=== PATIENT | female | born 1970 | race Asian ===

== ENCOUNTER 2022-11-28 15:00 | Emergency (ER) | payer OTHER, SELFPAY ==
[2022-11-28] VITALS (10 sets, daily range): BP systolic 116–140; BP diastolic 57–82; PULSE 81–104; RESP 16–18; TEMP 36.5–37.3; O2SAT 98–100; BMI 31.0
--- NOTE | 2022-11-28 15:20 | EDS_ITS ---
HPI History of Present Illness Chief Complaint: Abn Labs Narrative Narrative: 52-year-old female presenting with anemia. Patient reports a longstanding history of anemia but she does not know exactly what her hemoglobin levels were. She is recently moved from [facility]. She states last blood work was a year ago. She reports a long-term issue with menstrual cycles and vaginal bleeding. Prior to moving to the [facility] she has had menstrual cycles lasting 7 to 10 days month. Since moving here she has menstrual cycles every 1 to 2 months and can be is mild to spotting or heavy flow with clots. In October her menstrual period lasted 30 days. Patient states over this month it varied from spotting to heavy bleeding with golf ball size clots. She is currently only spotting. She was seen for the first time in her [employer] office and saw the nurse practitioner who did a biopsy. They checked a CBC noting that she had a low hemoglobin at 5.3. Patient does not report any black or bloody stools. She denies black or bloody emesis. She does report that if she gets up and moves too quickly she will feel short of breath and sometimes lightheaded. PFSH PFSH Allergy/AdvReac Type Severity Reaction Status Date / Time No Known Allergies Allergy Verified 11/28/22 15:02 Social History Smoking Status: Never smoker ROS ROS ED Constitutional Constitutional ED: Denies chills or fever(s) Eyes Eyes: Denies change in vision or diplopia ENT ENT ED: Denies rhinorrhea or sore throat Cardiovascular Cardiovascular: Denies chest pain or palpitations Respiratory/Chest Respiratory/Chest: Reports dyspnea on exertion; Denies cough Gastrointestinal Gastrointestinal: Denies abdominal pain, melena, nausea or vomiting Genitourinary Genitourinary ED: Reports other Details: Heavy menstrual side ; Denies dysuria or hematuria Musculoskeletal Musculoskeletal: Denies arthralgias or back pain Integumentary Denies abscess Neurologic Neurologic: Denies headache(s) EXAM Physical Exam Const Vital Signs: 11/28/22 15:01 11/28/22 17:29 11/28/22 17:01 Temperature 98 F 97.7 F L 97.7 F L Temperature Source Temporal Temporal Temporal Pulse Rate 104 H 98 98 Respiratory Rate 16 18 18 Blood Pressure 140/81 H 133/82 H 133/82 H Blood Pressure Mean 100 99 99 Blood Pressure Source Monitor Blood Pressure Position Semi-Fowlers Blood Pressure Location Left Arm Pulse Ox 100 100 100 Oxygen Delivery Method Room Air Room Air Room Air 11/28/22 17:43 11/28/22 17:44 Temperature 98.4 F 98.6 F Temperature Source Temporal Temporal Pulse Rate 96 93 Respiratory Rate 16 16 Blood Pressure 116/57 L 134/59 H Blood Pressure Mean 76 84 Blood Pressure Source Monitor Monitor Blood Pressure Position Semi-Fowlers Semi-Fowlers Blood Pressure Location Left Arm Left Arm Pulse Ox 98 98 Oxygen Delivery Method Room Air Room Air Positive well nourished General Appearance ED: NAD HEENT Reports moist mucous membranes Eyes PERRL and EOMs intact bilaterally General Eye ED: Negative for pale conjunctiva Chest Wall inspection of chest normal and palpation of chest normal Resp normal respiratory effort Auscultation: Negative for rales, rhonchi or wheezes Cardio regular rate and regular rhythm GI normal to inspection, nondistended, normoactive bowel sounds Extremity normal to inspection General Extremety ED: Negative for edema or tenderness General Extremity: Negative for edema Neuro oriented x3 and CN's II-XII intact bilaterally Sensorium / Orientation: alert Motor Exam: strength 5/5 throughout Psych mental status grossly normal MDM MDM MDM Narrative Medical decision making narrative: Patient with dysfunctional uterine bleeding and hemoglobin of 5.3. She is typed, screened, crossmatched for 2 units of blood. She is already had a biopsy done by obstetrics. I spoke with Dr. Sosa who is on-call for the group and she recommends just close outpatient follow-up after she receives her transfusion. They will discuss her options as an outpatient. CBC to assess white blood cell count, hemoglobin, platelets, differential. To assess liver function, renal function, glucose, anion gap, electrolytes. CBC shows a low white blood 8. Hemoglobin 5.0. Platelets 317. CMP unremarkable. Patient receiving blood transfusion without any difficulties. She feels well. She states she is actually feeling better. Once her blood is transfused I will have her discharged home to follow-up with Dr. Sosa. Return precautions were discussed. Impression: 1. Acute blood loss anemia 2. Dysfunctional uterine bleeding Lab Data Attestation: I reviewed the patient's lab results. Labs: Laboratory Results - last 24 hr 11/28/22 11/28/22 11/28/22 15:21 15:21 15:21 WBC 3.8 L RBC 3.80 L Hgb 5.0 L* Hct 21.2 L MCV 55.8 L MCH 13.2 L MCHC 23.6 L RDW Std Deviation 43.4 RDW Coeff of Catina 22.7 H Plt Count 317 Immature Gran % (Auto) 0.500 Neut % (Auto) 54.0 Lymph % (Auto) 32.7 Quay % (Auto) 11.5 H Eos % (Auto) 0.8 Baso % (Auto) 0.5 Absolute Neuts (auto) 2.1 Absolute Lymphs (auto) 1.25 Nucleated RBC % 0 Differential Comment SCANNED Diff Path Review May foll Polychromasia 1+ Hypochromasia 3+ Anisocytosis 2+ Microcytosis 3+ Ovalocytes RARE Sodium 140 Potassium 3.8 Chloride 108 H Carbon Dioxide 24.0 Anion Gap 8 BUN 13 Creatinine 0.88 Estim Creat Clear Calc 57.71 Est GFR (MDRD) Af Amer 88 Est GFR (MDRD) Non-Af 73 BUN/Creatinine Ratio 14.8 Glucose 172 H Calcium 8.8 Total Bilirubin 0.40 AST 11 L ALT 19 Alkaline Phosphatase 61 Total Protein 7.1 Albumin 3.6 Globulin 3.5 Albumin/Globulin Ratio 1.0 Blood Type B POSITIVE Antibody Screen NEGATIVE Crossmatch See Detail Discharge Plan Triage Chief Complaint: Abn Labs ED Provider: Yamil Paiz Dx/Rx/DC Orders Instructions: ED Dysfunctional Uterine Bleeding, ED Anemia, Unspecified (Child) Primary Care Provider: Sarahi Box NP Referrals: Sarahi Box FAMILY MEDICINE PHYSICIAN, FAMILY MEDICINE PHYSICIAN-C [Primary Care Provider] - Disposition Disposition: Home, Self Care
[2022-11-28 15:44] LABS: Absolute Lymphocyte Count 1.25 X10^3/uL (0.83-4.51); Absolute Neutrophil Count 2.1 X10^3/uL (2.0-7.7); Basophil# 0.02 X10^3/uL; Basophil% 0.5 % (0-1); Eosinophil# 0.03 X10^3/uL; Eosinophils% 0.8 % (0-5); Hematocrit 21.2 % (37-47); Lymphocyte # 1.25 X10^3/ul (0.83-4.51); Lymphocyte % 32.7 % (19-41); Mean Corp Hgb Conc 23.6 g/dL (32-36); Mean Corpuscular Hgb 13.2 pg (27.0-32.0); Mean Corpuscular Volume 55.8 fL (81-99); Monocyte# 0.44 X10^3/uL; Monocyte% 11.5 % (0-10); NRBC Flagged by Analyzer 0 % (0-5); Neutrophil # 2.06 X10^3/uL (2.7-7.7); POSITIVE COUNT YES; POSITIVE MORPHOLOGY YES; Platelet Count 317 K/mm3 (150-450); RBC Distribution Width CV 22.7 % (11.6-14.6); RBC Distribution Width SD 43.4 fl (35.1-43.9); White Blood Count 3.8 K/mm3 (4.4-11.0)
[2022-11-28 15:48] LABS: Differential Indicated SCAN CRITERIA MET
[2022-11-28 15:49] LABS: AST(SGOT) 11 U/L (15-37); Alanine Aminotransfer ALT/SGPT 19 U/L (13-56); Albumin, Serum 3.6 g/dL (3.2-5.0); Alkaline Phosphatase 61 U/L (45-117); Anion Gap 8 (5-15); BUN 13 mg/dL (7-18); BUN/Creat Ratio 14.8 RATIO (10-20); Calcium,Total 8.8 mg/dL (8.5-10.1); Chloride 108 mmol/L (98-107); Creatinine, Serum 0.88 mg/dL (0.55-1.02); EST Glomerular Filtration Rate 73 mL/min (>60); Est Glom Filt Rate - Afr Amer 88 mL/min (>60); Estimated Creatinine Clearance 57.71 ml/min; Globulin 3.5 g/dL (2.2-4.2); Glucose 172 mg/dL (74-106); Potassium 3.8 mmol/L (3.5-5.1); Protein, Total 7.1 g/dL (6.4-8.2); Sodium Level 140 mmol/L (136-145)
[2022-11-28 16:19] LABS: Differential Comment SCANNED; Microcytosis 3+; Polychromasia 1+
[2022-11-28 16:20] LABS: Ovalocyte RARE
[2022-11-28 16:26] LABS: Anisocytosis 2+; Hypochromasia 3+
[2022-11-29 11:48] LABS: Pathologist Review Reviewed
== END 2022-11-28 22:27 | disposition home or self-care (01) ==
PROVIDERS: Emergency Provider Student in an Organized Health Care Education/Training Program; PCP Nurse Practitioner Family; Visit Provider Student in an Organized Health Care Education/Training Program
DX: N93.8 Other specified abnormal uterine and vaginal bleeding (principal); D62 Acute posthemorrhagic anemia; R06.09 Other forms of dyspnea
CPT/HCPCS: 36430; 80053; 85025; 86850; 86900; 86901; 86920; 86922; 99283; J7040; P9016; A4216